=== PATIENT | female | born 1970 | race Caucasian/White ===

== ENCOUNTER → 2023-10-07 06:35 | Outpatient (REF) | payer OTHER, SELFPAY | LOC: MRI 3T 06:35 | PROVIDERS: ATTENDING PHYSICIAN Family Medicine; REFERRING PHYSICIAN Podiatrist Foot & Ankle Surgery | DX: E88.1 Lipodystrophy, not elsewhere classified (principal); M79.672 Pain in left foot | CPT/HCPCS: 73718 ==

== ENCOUNTER → 2025-01-22 06:42 | Outpatient (REF) | payer BC, SELFPAY | LOC: PAVMRI 06:42 | PROVIDERS: ATTENDING PHYSICIAN Internal Medicine; FAMILY PHYSICIAN Family Medicine | DX: M79.671 Pain in right foot (principal); M65.90 Unspecified synovitis and tenosynovitis, unspecified site; R26.2 Difficulty in walking, not elsewhere classified | CPT/HCPCS: 73718 ==